=== PATIENT | male | born 1990 | race Caucasian/White ===

== ENCOUNTER 2024-03-03 11:37 | Emergency (ER) | payer OTHER, SELFPAY ==
[2024-03-03 11:55] VITALS: BP 151/75; PULSE 83; RESP 18; TEMP 36.8; O2SAT 98; BMI 23.7
--- NOTE | 2024-03-03 12:46 | ED_ITS ---
HPI - Wound/Laceration <Adele Morin PA-C - Last Filed: 03/03/24 14:31> General Chief Complaint: Wound/Laceration Stated Complaint: Facial Injury Time Seen by Provider: 03/03/24 12:06 Mode of arrival: Family Vehicle History of Present Illness HPI narrative: Mr. Rose is a very pleasant 33-year-old male with no reported past medical history presents to the emergency department for laceration to left side of his face that occurred prior to arrival. States that he believes he had a tetanus shot in April of this year. Patient was working when a orange plastic conduit hit him in the left side of his mouth. He sustained a laceration to the left upper lip and left nasolabial fold region. Patient denies loss of consciousness or headache. Denies any loose teeth. Denies laceration through his lip. Denies any other injuries. No blood thinner use or medications prior to arrival. Related Data Previous Rx's Medication Instructions Recorded chlorhexidine gluconate 0.12 % 15 ml mucous membrane BID #300 mL 03/03/24 mouthwash (Peridex) Allergies Allergy/AdvReac Type Severity Reaction Status Date / Time No Known Drug Allergies Allergy Verified 03/03/24 11:59 Review of Systems <Adele Morin PA-C - Last Filed: 03/03/24 14:31> Review of Systems ROS Unobtainable: All systems reviewed & are unremarkable except as noted in HPI and below Patient History <Adele Morin PA-C - Last Filed: 03/03/24 14:31> Social History Smoking Status: Never smoker Smoking Status: Never smoker Exam <Adele Morin PA-C - Last Filed: 03/03/24 14:31> Narrative Exam Narrative: GENERAL: 33 year old patient appears stated age. Well-developed patient, in no acute distress. HEAD: Normocephalic. left upper lip with 4cm vertical laceration extending toward nasolabial fold. Does not go through lip. EYES: PERRL. Extraocular motions intact. No scleral icterus. No injection or drainage. ENT: Nose without bleeding, purulent drainage. Throat without erythema, tonsillar hypertrophy or exudate. Airway patent. 3mm puncture wound left inner upper lip. No loose or fractured teeth. NECK: Trachea midline. Cervical ROM intact. CARDIOVASCULAR: Regular rate and rhythm. RESPIRATORY: ?Nonlabored respirations. ?Speaking in clear, full sentences. ?Clear to auscultation. EXTREMITIES: No edema or joint tenderness. NEURO: AOx3. ?Clear speech. ?Moves all 4 extremities appropriately. SKIN: 4cm left upper lip region laceration. Bleeding controlled with direct pres sure. Initial Vital Signs Initial Vital Signs: Vital Signs Temperature 98.2 F 03/03/24 11:55 Pulse Rate 83 03/03/24 11:55 Respiratory Rate 18 03/03/24 11:55 Blood Pressure 151/75 H 03/03/24 11:55 Pulse Oximetry 98 03/03/24 11:55 Oxygen Delivery Method Room Air 03/03/24 11:55 <Rajan Carr MD - Last Filed: 03/04/24 08:02> Initial Vital Signs Initial Vital Signs: Vital Signs Temperature 98.2 F 03/03/24 11:55 Pulse Rate 83 03/03/24 11:55 Respiratory Rate 18 03/03/24 11:55 Blood Pressure 151/75 H 03/03/24 11:55 Pulse Oximetry 98 03/03/24 11:55 Oxygen Delivery Method Room Air 03/03/24 11:55 Procedures <Adele Morin PA-C - Last Filed: 03/03/24 14:31> Laceration Repair Laceration 1: Time of procedure: 14:22 Site: face and lip Side (If applicable): left Size (cm): 4 Depth: simple, single layer Local Anesthetic: bupivacaine 0.25% Amount of anesthesia used (mL): 4 Pre-repair: wound explored, irrigated extensively, deep structures intact and cleansed with chlorhexadine Skin layer closed with: nylon Skin layer suture size: 6-0 Number of sutures: 5 Technique: simple, interrupted Course <Adele Morin PA-C - Last Filed: 03/03/24 14:31> Orders Ordered: Discontinued Medications Acetaminophen (Acetaminophen 325 Mg Tablet) 650 mg PO NOW ONE Stop: 03/03/24 12:48 Last Admin: 03/03/24 13:07 Dose: 650 mg Documented By: GATO Bacitracin (Bacitracin Oint 0.9 Gm Pckt) 1 applic TOP NOW ONE Stop: 03/03/24 14:23 Bupivacaine HCl (Bupivacaine 0.25% (Pf) Vial) 5 ml SUBCUT NOW ONE Stop: 03/03/24 12:48 Last Admin: 03/03/24 13:09 Dose: 5 ml Documented By: GATO Ibuprofen (Ibuprofen 400 Mg Tablet) 400 mg PO NOW ONE Stop: 03/03/24 12:48 Last Admin: 03/03/24 13:06 Dose: 400 mg Documented By: GATO Vital Signs Vital signs: Vital Signs - 8 hr 03/03/24 11:55 Temperature 98.2 F Pulse Rate 83 Respiratory Rate 18 Blood Pressure 151/75 H Pulse Oximetry 98 Oxygen Delivery Method Room Air <Rajan Carr MD - Last Filed: 03/04/24 08:02> Orders Ordered: Discontinued Medications Acetaminophen (Acetaminophen 325 Mg Tablet) 650 mg PO NOW ONE Stop: 03/03/24 12:48 Last Admin: 03/03/24 13:07 Dose: 650 mg Documented By: GATO Bacitracin (Bacitracin Oint 0.9 Gm Pckt) 1 applic TOP NOW ONE Stop: 03/03/24 14:23 Bupivacaine HCl (Bupivacaine 0.25% (Pf) Vial) 5 ml SUBCUT NOW ONE Stop: 03/03/24 12:48 Last Admin: 03/03/24 13:09 Dose: 5 ml Documented By: GATO Ibuprofen (Ibuprofen 400 Mg Tablet) 400 mg PO NOW ONE Stop: 03/03/24 12:48 Last Admin: 03/03/24 13:06 Dose: 400 mg Documented By: GATO Vital Signs Vital signs: Vital Signs - 8 hr 03/03/24 11:55 Temperature 98.2 F Pulse Rate 83 Respiratory Rate 18 Blood Pressure 151/75 H Pulse Oximetry 98 Oxygen Delivery Method Room Air MDM - Wound/Laceration <Adele Morin PA-C - Last Filed: 03/03/24 14:31> Medical Records Attestation: I reviewed the patient's medical records. MDM Narrative Medical decision making narrative: 33-year-old male with no reported past medical history presents to the emergency department for laceration to left side of his face that occurred prior to arrival. Differential diagnosis includes but is not limited to lip laceration, facial laceration, facial trauma, intraoral laceration, etc. On exam patient is in no acute distress, nontoxic appearing, vital signs appropriate. He has a 4 cm linear/vertical laceration just above the left upper lip. We will proceed with nuclear medicine supervisor, irrigation, cleansing and repair of the wound for best cosmetic outcome. Laceration is not through and through. He does have a very small puncture wound on the left upper lip that does not warrant suture. We will give Tylenol and ibuprofen. Wound repaired using 6-0 Ethilon suture. Five simple interrupted. Patient tolerated procedure well. Discussed proper wound care. Discussed signs and symptoms of infection. Advised suture removal in 5 days. He was prescribed Peridex mouthwash for small intraoral laceration. Patient verbalized understanding of all information and stable for discharge home. Discharge Plan Departure Patient Disposition: Home Clinical Impression: Facial laceration Qualifiers: Encounter type: initial encounter Qualified Code(s): S01.81XA - Laceration without foreign body of other part of head, initial encounter Laceration of lip Qualifiers: Encounter type: initial encounter Qualified Code(s): S01.511A - Laceration without foreign body of lip, initial encounter Instructions: DI for Laceration Repair Activity Restrictions/Additional Instructions: Today you had a laceration to your face. We have placed 5 sutures. They need to be removed in 5 days. You may do this in your doctor's office, the [id number]gent [facility], or here if necessary. Please keep the dressing on your wound clean, dry, and intact for the next 24 hours. After this time, you may remove the dressing and gently clean the wound with soap and water, then pat dry. Keep the wound clean and covered. You may use antibiotic ointment or vaseline. Avoid soaking the wound in any water such as a bath, pool, or the ocean. If you develop any signs of wound infection such as increased redness, pus drainage, streaking redness, or fevers, please return to the ER immediately for evaluation. Once sutures are removed and the wound has healed, apply sunscreen daily to reduce the appearance of scars. For the laceration inside your mouth, please rinse your mouth out after eating or drinking with water or mouthwash. Please apply ice to your upper lip at least 4 times a day for 15 minutes each to help with swelling. Please follow up with your primary care doctor within the next 2-3 days for ER follow-up. (If you do not have a PCP you can call [phone]. ?to schedule an appointment with an [facility] Primary Care Provider) IF YOU DEVELOP ANY NEW OR WORSENING SYMPTOMS, RETURN TO THE ER! Please read the attached instructions, they highlight more specific treatments and interventions for you at home. Thank you for letting me participate in your care, Adele Morin PA-C Prescriptions: New chlorhexidine gluconate [Peridex] 0.12 % mouthwash 15 ml mucous membrane BID Qty: 300 0RF Referrals: Miscellaneous,Doctor, [Primary Care Provider] - Stand Alone Forms: Patient Portal/API/Survey, Work Release Note ED Sign-out <Rajan Carr MD - Last Filed: 03/04/24 08:02> Cosign ED Attending Cosignature Attestation: I was immediately available in the department for consultation. ?This documentation has been reviewed and I agree with assessment and plan. Supervised by Rajan Carr MD
[2024-03-03] MEDS: IBUPROFEN 400 MG TABLET PO (13:06)
[2024-03-03] MEDS: ACETAMINOPHEN 325 MG TABLET 650 MG PO (13:07)
[2024-03-03] MEDS: BUPIVACAINE 0.25% (PF) VIAL 5 ML SUBCUT (13:09)
[2024-03-03 14:36] VITALS: BP 149/69; PULSE 68; RESP 18; O2SAT 98
== END 2024-03-03 14:36 | disposition home or self-care (01) ==
PROVIDERS: Emergency Provider Physician Assistant
DX: S01.81XA Laceration without foreign body of other part of head, initial encounter (principal); S01.511A Laceration without foreign body of lip, initial encounter; W26.9XXA Contact with unspecified sharp object(s), initial encounter
CPT/HCPCS: 12013; 99283; J3490